=== PATIENT | female | born 1950 | race Caucasian/White ===

== ENCOUNTER 2018-08-28 12:33 | Emergency (ER) | payer MEDICARE, MEDICAID ==
[~2018-08-28] VITALS: Ht 157.5 cm; Wt 117.2 kg
[2018-08-28] MEDS ORDERED: FAMOTIDINE 20 MG TABLET PO ONE (13:00)
[2018-08-28] MEDS ORDERED: PLEASE ENTER ALLERGIES MC SCH (13:00)
[2018-08-28 13:18] LABS: BASOPHILS # (AUTO) 0.04 x10^3/uL (0-0.1); BASOPHILS % (AUTO) 1 % (0-1); EOSINOPHILS # (AUTO) 0.68 x10^3/uL (0-0.4); EOSINOPHILS % (AUTO) 8 % (1-7); LYMPHOCYTES # (AUTO) 1.15 x10^3/uL (1-3.4); LYMPHOCYTES % (AUTO) 13 % (22-44); MD NO; MEAN CORPUSCULAR HEMOGLOBIN 30.5 pg (27.0-34.8); MEAN CORPUSCULAR HGB CONC 34.1 g/dL (32.4-35.8); MEAN CORPUSCULAR VOLUME 89.5 fL (80-100); MEAN PLATELET VOLUME 8.9 fL (7.4-10.4); MONOCYTES # (AUTO) 0.54 x10^3/uL (0.2-0.8); MONOCYTES % (AUTO) 6 % (2-9); NEUTROPHILS # (AUTO) 6.23 x10^3/uL (1.8-6.8); NEUTROPHILS % (AUTO) 72 % (42-75); PLATELET COUNT 211 x10^3/uL (130-400); RED BLOOD COUNT 4.73 x10^6/uL (3.82-5.3); RED CELL DISTRIBUTION WIDTH 14.9 % (9.6-15.2)
[2018-08-28] MEDS: PLEASE ENTER HEIGHT AND WEIGHT MC SCH ×2 (13:21→13:26)
[2018-08-28] MEDS ORDERED: FAMOTIDINE 20 MG TABLET ONE (13:23)
[2018-08-28 13:31] LABS: ALANINE AMINOTRANSFERASE 26 U/L (12-78); ALBUMIN 3.9 g/dL (3.4-5.0); ANION GAP 5 mmol/L (5-15); CALCIUM 9.1 mg/dL (8.5-10.1); CHLORIDE 109 mmol/L (98-107); CREATININE 0.99 mg/dL (0.55-1.02)
[2018-08-28 13:33] LABS: ALKALINE PHOSPHATASE 126 U/L (45-117); BILIRUBIN,TOTAL 0.9 mg/dL (0.2-1.0); TOTAL PROTEIN 7.2 g/dL (6.4-8.2)
--- NOTE | 2018-08-28 14:27 | NUR ---
DR BARBOZA IN TO EVALUATE.
[2018-08-28 14:51] VITALS: BP 132/84
== END 2018-08-28 14:52 | disposition home or self-care (01) ==
LOC: ED 14:39
DX: T78.40XA Allergy, unspecified, initial encounter (principal); L50.9 Urticaria, unspecified; X58.XXXA Exposure to other specified factors, initial encounter
CPT/HCPCS: 36415; 80053; 85025; 99284; J7512; Q0177

== ENCOUNTER 2018-11-15 09:10 | Inpatient (IN) | payer MEDICARE, MEDICAID ==
[~2018-11-15] VITALS: Ht 157.5 cm; Wt 118.4 kg
[2018-11-15] MEDS ORDERED: SODIUM CHLORIDE FLUSH 10ML SYR IVF ONE (10:00)
[2018-11-15] MEDS ORDERED: AMPICILLIN/SULBACTAM 3 GM in SODIUM CHLORIDE 0.9% 100 ML IV ONE (10:00)
--- NOTE | 2018-11-15 10:06 | NUR ---
US BEING DONE AT BEDSIDE. PT C/O LEFT FOOT PAIN, SWELLING, AND REDNESS GRADUALYY BECOMING WORSE OVER LAST TWO WITH REDNESS NOTICED THIS MORNING GOING UP HER LEFT LEG. PT DENIES DM, CP, SOB. IV STARTED. WAITING FOR BC X2 TO BE DRAWN PRIOR TO ANTIBIOTICS.
--- NOTE | 2018-11-15 10:33 | NUR ---
LAB AT BEDSIDE FOR BLOOD CULTURES.
--- NOTE | 2018-11-15 10:50 | NUR ---
BEDSIDE REPORT FROM MAIDA OAKLEY, ASSUMED CARE OF PT AT THIS TIME. PT NEEDS 2ND BC DRAWN BEFORE ABX. AWAITING LAB RESULTS
--- NOTE | 2018-11-15 10:56 | NUR ---
LAB AT BEDSIDE FOR 2ND
--- NOTE | 2018-11-15 11:08 | NUR ---
iv abx started after 2nd bc drawn
[2018-11-15 11:10] LABS: BASOPHILS # (AUTO) 0.03 x10^3/uL (0-0.1); BASOPHILS % (AUTO) 0 % (0-1); EOSINOPHILS # (AUTO) 0.53 x10^3/uL (0-0.4); EOSINOPHILS % (AUTO) 6 % (1-7); LYMPHOCYTES # (AUTO) 1.44 x10^3/uL (1-3.4); LYMPHOCYTES % (AUTO) 15 % (22-44); MD NO; MEAN CORPUSCULAR HEMOGLOBIN 30.9 pg (27.0-34.8); MEAN CORPUSCULAR HGB CONC 33.4 g/dL (32.4-35.8); MEAN CORPUSCULAR VOLUME 92.4 fL (80-100); MEAN PLATELET VOLUME 8.8 fL (7.4-10.4); MONOCYTES # (AUTO) 0.66 x10^3/uL (0.2-0.8); MONOCYTES % (AUTO) 7 % (2-9); NEUTROPHILS # (AUTO) 6.82 x10^3/uL (1.8-6.8); NEUTROPHILS % (AUTO) 72 % (42-75); PLATELET COUNT 180 x10^3/uL (130-400); RED BLOOD COUNT 4.52 x10^6/uL (3.82-5.3); RED CELL DISTRIBUTION WIDTH 15.2 % (9.6-15.2)
[2018-11-15 11:23] LABS: ALANINE AMINOTRANSFERASE 23 U/L (12-78); ALBUMIN 3.8 g/dL (3.4-5.0); ANION GAP 6 mmol/L (5-15); CHLORIDE 107 mmol/L (98-107); CREATININE 0.88 mg/dL (0.55-1.02)
[2018-11-15 11:27] LABS: ALKALINE PHOSPHATASE 114 U/L (45-117); BILIRUBIN,TOTAL 0.9 mg/dL (0.2-1.0)
--- NOTE | 2018-11-15 12:15 | NUR ---
pt resting in [facility], awaiting bed assignment.
[2018-11-15] MEDS ORDERED: LISI5TAB7 PO (12:18)
[2018-11-15] MEDS ORDERED: OMEG-76 PO (12:18)
[2018-11-15] MEDS ORDERED: ATOR10TA9 PO (12:18)
[2018-11-15] MEDS ORDERED: SODIUM CHLORIDE 0.9% 1,000 ML IV SCH (12:24)
[2018-11-15] MEDS ORDERED: POLYETHYLENE GLYCOL 17 GM PACKET PO PRN (12:30)
[2018-11-15] MEDS ORDERED: VANCOMYCIN PER PHARMACY MC PRN (12:30)
[2018-11-15] MEDS ORDERED: ONDANSETRON 2MG/ML, 2ML IVPush PRN (12:30)
[2018-11-15] MEDS ORDERED: LABETALOL 5MG/ML, 20ML IVPush PRN (12:30)
[2018-11-15] MEDS ORDERED: ONDANSETRON ODT 4 MG PO PRN (12:30)
--- NOTE | 2018-11-15 12:31 | NUR ---
report to leandro landa
[2018-11-15 13:06] LABS: FREE T4 (FREE THYROXINE) 1.03 ng/dL (0.76-1.46)
[2018-11-15 13:27] VITALS: BP 142/86
[2018-11-15] MEDS ORDERED: PHARMACOKINETIC MONITORING MC PRN (13:30)
[2018-11-15] MEDS ORDERED: PHARMACOKINETIC CONSULTATION MC ONE (13:30)
[2018-11-15] MEDS ORDERED: ACET-76 PO (16:03)
[2018-11-15] MEDS: AMPICILLIN/SULBACTAM 3 GM in SODIUM CHLORIDE 0.9% 100 ML IV SCH ×2 (16:20→20:50)
[2018-11-15] MEDS: VANCOMYCIN 2,200 MG in SODIUM CHLORIDE 0.9% 500 ML IV SCH (17:20)
[2018-11-15 18:57] LABS: HCT (SEDRATE) 39.7 % (34.6-47.8)
[2018-11-15 19:48] VITALS: BP 119/55
[2018-11-16 02:37] VITALS: BP 110/43
[2018-11-16] MEDS: AMPICILLIN/SULBACTAM 3 GM in SODIUM CHLORIDE 0.9% 100 ML IV SCH ×4 (04:37→22:29)
[2018-11-16 05:30] LABS: BASOPHILS # (AUTO) 0.04 x10^3/uL (0-0.1); BASOPHILS % (AUTO) 1 % (0-1); EOSINOPHILS # (AUTO) 0.46 x10^3/uL (0-0.4); EOSINOPHILS % (AUTO) 6 % (1-7); LYMPHOCYTES % (AUTO) 19 % (22-44); MD NO; MEAN CORPUSCULAR HEMOGLOBIN 30.2 pg (27.0-34.8); MEAN CORPUSCULAR HGB CONC 33.1 g/dL (32.4-35.8); MEAN CORPUSCULAR VOLUME 91.5 fL (80-100); MEAN PLATELET VOLUME 8.4 fL (7.4-10.4); MONOCYTES # (AUTO) 0.66 x10^3/uL (0.2-0.8); MONOCYTES % (AUTO) 9 % (2-9); NEUTROPHILS # (AUTO) 4.75 x10^3/uL (1.8-6.8); NEUTROPHILS % (AUTO) 65 % (42-75); PLATELET COUNT 159 x10^3/uL (130-400); RED BLOOD COUNT 4.09 x10^6/uL (3.82-5.3); RED CELL DISTRIBUTION WIDTH 15.1 % (9.6-15.2)
[2018-11-16 05:45] LABS: CHLORIDE 112 mmol/L (98-107)
[2018-11-16 06:14] LABS: ALANINE AMINOTRANSFERASE 16 U/L (12-78); ALBUMIN 3.3 g/dL (3.4-5.0); ALKALINE PHOSPHATASE 95 U/L (45-117); ANION GAP 9 mmol/L (5-15); CALCIUM 8.5 mg/dL (8.5-10.1); CREATININE 0.77 mg/dL (0.55-1.02); TOTAL PROTEIN 6.1 g/dL (6.4-8.2)
[2018-11-16 07:31] VITALS: BP 136/55
[2018-11-16] MEDS: LISINOPRIL 5 MG TABLET PO SCH (09:00)
[2018-11-16] MEDS ORDERED: LISINOPRIL 10 MG TABLET ONE (09:59)
[2018-11-16] MEDS ORDERED: ACETAMINOPHEN 500 MG TABLET PO PRN (10:00)
[2018-11-16] MEDS: SENNA/DOCUSATE TABLET PO SCH (10:03)
[2018-11-16] MEDS: ENOXAPARIN 40 MG/0.4 ML SQ SCH (13:24)
[2018-11-16] MEDS: VANCOMYCIN 2,200 MG in SODIUM CHLORIDE 0.9% 500 ML IV SCH (13:24)
[2018-11-16 13:45] VITALS: BP 116/64
[2018-11-16 20:35] VITALS: BP 114/67
[2018-11-16] MEDS: ATORVASTATIN 10 MG TABLET PO SCH ×2 (21:00→22:29)
[2018-11-17 01:00] VITALS: BP 120/71
[2018-11-17] MEDS: AMPICILLIN/SULBACTAM 3 GM in SODIUM CHLORIDE 0.9% 100 ML IV SCH ×2 (05:03→10:49)
[2018-11-17 07:50] VITALS: BP 153/77
[2018-11-17] MEDS: OMEGA-3/FISH OIL CAPSULE PO SCH (07:53)
[2018-11-17] MEDS: LISINOPRIL 5 MG TABLET PO SCH (07:53)
[2018-11-17] MEDS: SENNA/DOCUSATE TABLET PO SCH (07:53)
[2018-11-17 08:48] LABS: BASOPHILS # (AUTO) 0.03 x10^3/uL (0-0.1); BASOPHILS % (AUTO) 1 % (0-1); EOSINOPHILS # (AUTO) 0.46 x10^3/uL (0-0.4); EOSINOPHILS % (AUTO) 7 % (1-7); LYMPHOCYTES % (AUTO) 24 % (22-44); MD NO; MEAN CORPUSCULAR HEMOGLOBIN 29.8 pg (27.0-34.8); MEAN CORPUSCULAR HGB CONC 32.7 g/dL (32.4-35.8); MEAN CORPUSCULAR VOLUME 91.3 fL (80-100); MEAN PLATELET VOLUME 8.2 fL (7.4-10.4); MONOCYTES # (AUTO) 0.38 x10^3/uL (0.2-0.8); MONOCYTES % (AUTO) 6 % (2-9); NEUTROPHILS # (AUTO) 4.29 x10^3/uL (1.8-6.8); NEUTROPHILS % (AUTO) 63 % (42-75); PLATELET COUNT 166 x10^3/uL (130-400); RED BLOOD COUNT 4.31 x10^6/uL (3.82-5.3)
[2018-11-17 08:59] LABS: ALBUMIN 3.5 g/dL (3.4-5.0); ANION GAP 7 mmol/L (5-15); CALCIUM 8.9 mg/dL (8.5-10.1); CHLORIDE 112 mmol/L (98-107)
[2018-11-17] MEDS ORDERED: LISINOPRIL 5 MG TABLET PO SCH (09:00)
[2018-11-17 09:03] LABS: ALANINE AMINOTRANSFERASE 24 U/L (12-78); ALKALINE PHOSPHATASE 116 U/L (45-117); BILIRUBIN,TOTAL 0.7 mg/dL (0.2-1.0); CREATININE 0.84 mg/dL (0.55-1.02); TOTAL PROTEIN 6.6 g/dL (6.4-8.2)
[2018-11-17 13:21] VITALS: BP 127/69
[2018-11-17] MEDS: ENOXAPARIN 40 MG/0.4 ML SQ SCH (13:24)
[2018-11-17] MEDS: VANCOMYCIN 2,200 MG in SODIUM CHLORIDE 0.9% 500 ML IV SCH (13:24)
[2018-11-17] MEDS: PIPERACILLIN/TAZO/PMX 3.375GM 50 ML IV SCH ×2 (16:59→22:09)
[2018-11-17 21:23] VITALS: BP 138/61
[2018-11-17] MEDS: TOLNAFTATE 1% TP SCH (21:53)
[2018-11-17] MEDS: ATORVASTATIN 10 MG TABLET PO SCH (21:53)
[2018-11-17] MEDS ORDERED: DIPHENHYDRAMINE 50 MG CAPSULE PO PRN (23:30)
[2018-11-18 03:59] VITALS: BP 129/55
[2018-11-18] MEDS: PIPERACILLIN/TAZO/PMX 3.375GM 50 ML IV SCH ×4 (04:50→22:18)
[2018-11-18 05:36] LABS: BASOPHILS # (AUTO) 0.02 x10^3/uL (0-0.1); BASOPHILS % (AUTO) 0 % (0-1); EOSINOPHILS # (AUTO) 0.43 x10^3/uL (0-0.4); EOSINOPHILS % (AUTO) 7 % (1-7); LYMPHOCYTES # (AUTO) 1.18 x10^3/uL (1-3.4); LYMPHOCYTES % (AUTO) 19 % (22-44); MD NO; MEAN CORPUSCULAR HEMOGLOBIN 30.5 pg (27.0-34.8); MEAN CORPUSCULAR HGB CONC 33.3 g/dL (32.4-35.8); MEAN CORPUSCULAR VOLUME 91.7 fL (80-100); MEAN PLATELET VOLUME 8.1 fL (7.4-10.4); MONOCYTES # (AUTO) 0.47 x10^3/uL (0.2-0.8); MONOCYTES % (AUTO) 8 % (2-9); NEUTROPHILS # (AUTO) 4.12 x10^3/uL (1.8-6.8); NEUTROPHILS % (AUTO) 66 % (42-75); PLATELET COUNT 160 x10^3/uL (130-400); RED BLOOD COUNT 3.89 x10^6/uL (3.82-5.3); RED CELL DISTRIBUTION WIDTH 15.2 % (9.6-15.2)
[2018-11-18 05:46] LABS: ALANINE AMINOTRANSFERASE 23 U/L (12-78); ALBUMIN 3.2 g/dL (3.4-5.0); ANION GAP 5 mmol/L (5-15); CALCIUM 8.7 mg/dL (8.5-10.1); CHLORIDE 112 mmol/L (98-107)
[2018-11-18 05:50] LABS: ALKALINE PHOSPHATASE 104 U/L (45-117); BILIRUBIN,TOTAL 0.7 mg/dL (0.2-1.0); CREATININE 0.85 mg/dL (0.55-1.02); TOTAL PROTEIN 6.1 g/dL (6.4-8.2)
[2018-11-18 06:44] VITALS: BP 154/86
[2018-11-18] MEDS: LISINOPRIL 5 MG TABLET PO SCH (08:20)
[2018-11-18] MEDS: SENNA/DOCUSATE TABLET PO SCH (08:20)
[2018-11-18] MEDS: TOLNAFTATE 1% TP SCH ×2 (08:20→21:12)
[2018-11-18] MEDS: OMEGA-3/FISH OIL CAPSULE PO SCH (08:20)
[2018-11-18] MEDS: ENOXAPARIN 40 MG/0.4 ML SQ SCH (13:37)
[2018-11-18 13:52] VITALS: BP 144/73
[2018-11-18 19:09] VITALS: BP 115/52
[2018-11-18] MEDS: ATORVASTATIN 10 MG TABLET PO SCH (21:12)
[2018-11-18] MEDS: DIPHENHYDRAMINE 25 MG CAPSULE PO PRN (22:17)
[2018-11-19 01:42] VITALS: BP 115/66
[2018-11-19] MEDS: PIPERACILLIN/TAZO/PMX 3.375GM 50 ML IV SCH (04:53)
[2018-11-19 08:30] VITALS: BP 138/59
[2018-11-19] MEDS: SENNA/DOCUSATE TABLET PO SCH (09:00)
[2018-11-19] MEDS: OMEGA-3/FISH OIL CAPSULE PO SCH (09:13)
[2018-11-19] MEDS: LISINOPRIL 5 MG TABLET PO SCH (09:14)
[2018-11-19] MEDS: TOLNAFTATE 1% TP SCH ×2 (09:16→20:45)
[2018-11-19] MEDS: DIPHENHYDRAMINE 25 MG CAPSULE PO PRN ×2 (09:36→20:57)
[2018-11-19] MEDS: CEFTAZIDIME 1,000 MG in SODIUM CHLORIDE 0.9% 50 ML IV SCH ×2 (12:35→20:44)
[2018-11-19] MEDS: ENOXAPARIN 40 MG/0.4 ML SQ SCH (12:44)
[2018-11-19] MEDS ORDERED: PICC FLUSH PROTOCOL XX SCH (16:00)
[2018-11-19 18:49] VITALS: BP 125/61
[2018-11-19] MEDS: ATORVASTATIN 10 MG TABLET PO SCH (20:43)
[2018-11-20 01:39] VITALS: BP 123/56
[2018-11-20] MEDS: CEFTAZIDIME 1,000 MG in SODIUM CHLORIDE 0.9% 50 ML IV SCH ×2 (05:08→12:17)
[2018-11-20 05:46] LABS: BASOPHILS # (AUTO) 0.03 x10^3/uL (0-0.1); BASOPHILS % (AUTO) 1 % (0-1); EOSINOPHILS # (AUTO) 0.38 x10^3/uL (0-0.4); EOSINOPHILS % (AUTO) 6 % (1-7); LYMPHOCYTES # (AUTO) 1.45 x10^3/uL (1-3.4); LYMPHOCYTES % (AUTO) 22 % (22-44); MD NO; MEAN CORPUSCULAR HEMOGLOBIN 29.7 pg (27.0-34.8); MEAN CORPUSCULAR HGB CONC 32.8 g/dL (32.4-35.8); MEAN CORPUSCULAR VOLUME 90.5 fL (80-100); MEAN PLATELET VOLUME 8.3 fL (7.4-10.4); MONOCYTES # (AUTO) 0.39 x10^3/uL (0.2-0.8); MONOCYTES % (AUTO) 6 % (2-9); NEUTROPHILS # (AUTO) 4.42 x10^3/uL (1.8-6.8); NEUTROPHILS % (AUTO) 66 % (42-75); PLATELET COUNT 179 x10^3/uL (130-400); RED BLOOD COUNT 4.18 x10^6/uL (3.82-5.3); RED CELL DISTRIBUTION WIDTH 14.9 % (9.6-15.2)
[2018-11-20 05:55] LABS: ANION GAP 7 mmol/L (5-15); CALCIUM 9.3 mg/dL (8.5-10.1); CHLORIDE 108 mmol/L (98-107)
[2018-11-20 05:57] LABS: CREATININE 0.88 mg/dL (0.55-1.02)
[2018-11-20] MEDS ORDERED: DIPH25CA61 PO (08:33)
[2018-11-20] MEDS: SENNA/DOCUSATE TABLET PO SCH (09:00)
[2018-11-20] MEDS: TOLNAFTATE 1% TP SCH (09:00)
[2018-11-20 09:12] VITALS: BP 154/57
[2018-11-20] MEDS: OMEGA-3/FISH OIL CAPSULE PO SCH (09:17)
[2018-11-20] MEDS: LISINOPRIL 5 MG TABLET PO SCH (09:18)
[2018-11-20 13:11] VITALS: BP 155/64
[2018-11-20] MEDS: ENOXAPARIN 40 MG/0.4 ML SQ SCH (13:11)
== END 2018-11-20 16:45 | DRG 603 ==
LOC: ED 11:19 → EDIP 11:53 → 4NOR 13:00
PROVIDERS: ADMIT Internal Medicine; ATTEND Internal Medicine
PROC: 02HV33Z Insertion of Infusion Device into Superior Vena Cava, Percutaneous Approach (ICD-10-PCS; principal; 2018-11-19)
PROC: B5181ZA Fluoroscopy of Superior Vena Cava using Low Osmolar Contrast, Guidance (ICD-10-PCS; 2018-11-19)
PROC: B548ZZA Ultrasonography of Superior Vena Cava, Guidance (ICD-10-PCS; 2018-11-19)
DX: L03.116 Cellulitis of left lower limb (principal); Z68.42 Body mass index [BMI] 45.0-49.9, adult; B96.5 Pseudomonas (aeruginosa) (mallei) (pseudomallei) as the cause of diseases classified elsewhere; B35.3 Tinea pedis; G62.9 Polyneuropathy, unspecified; B36.9 Superficial mycosis, unspecified; E66.9 Obesity, unspecified; I10 Essential (primary) hypertension; E78.5 Hyperlipidemia, unspecified; Z79.899 Other long term (current) drug therapy; Z82.3 Family history of stroke; Z82.49 Family history of ischemic heart disease and other diseases of the circulatory system; Z83.3 Family history of diabetes mellitus; Z88.8 Allergy status to other drugs, medicaments and biological substances; L27.1 Localized skin eruption due to drugs and medicaments taken internally; T36.0X5A Adverse effect of penicillins, initial encounter
CPT/HCPCS: 36415; 36573; 80048; 80053; 83735; 83880; 84100; 84439; 84443; 85025; 85651; 86140; 87040; 87070; 87077; 87186; 87205; 96365; 96366; G0378; J0295; J0713; J1650; J2543; J3370; C1751; J7030; J7040; Q0163